=== PATIENT | male | born 1940 | race Caucasian/White ===

== ENCOUNTER → 2017-11-01 | Outpatient (CLI) | payer MEDICARE, OTHER | END | disposition home or self-care (01) | LOC: PCVCCLINIC 08:00 | DX: I44.4 Left anterior fascicular block (principal); I10 Essential (primary) hypertension; E78.5 Hyperlipidemia, unspecified; D33.4 Benign neoplasm of spinal cord; Z79.82 Long term (current) use of aspirin; Z88.8 Allergy status to other drugs, medicaments and biological substances | CPT/HCPCS: 80061; 93005; G0463 ==

== ENCOUNTER → 2018-05-04 | Outpatient (CLI) | payer MEDICARE, OTHER ==
--- NOTE | 2018-05-04 10:36 | PCVCIMAG ---
APPROVED REPORT Study performed: 05/04/2018 09:09:32 EXAM: Comprehensive 2D, Doppler, and color-flow Echocardiogram Patient Location: Echo lab Status: routine BSA: 2.17 HR: 49 bpmBP: 110/78 mmHg Rhythm: Bradycardia Other Information Study Quality: Adequate Risk Factors: Cardiac Risk Factors: HTN Indications Abnormal ECG 2D Dimensions IVSd: 10.44 (7-11mm) LVDd: 50.17 mm PWd: 9.20 (7-11mm)Ascending Ao: 36.62 (22-36mm) LVDs: 36.10 (25-40mm) Left Atrium: 44.49 (27-40mm) Aortic Root: 37.42 mm LV Single Plane 4CH: 51.12 % LV Single Plane 2CH: 58.11 % Biplane EF: 55.3 % Volumes Left Atrial Volume (Systole) Single Plane 4CH: 68.61 mLSingle Plane 2CH: 91.23 mL LA ESV Index: 40.00 mL/m2 Aortic Valve AoV Peak Jd.: 1.41 m/s AO Peak Gr.: 7.95 mmHgLVOT Max P.19 mmHg LVOT Max V: 0.89 m/s Mitral Valve E/A Ratio: 0.5 MV Decel. Time: 407.31 ms MV E Max Jd.: 0.35 m/s MV A Jd.: 0.65 m/s MV PHT: 118.12 ms IVRT: 186.85 ms Pulmonary Valve PV Peak Jd.: 0.62 m/sPV Peak Gr.: 1.56 mmHg Pulmonary Vein P Vein S: 0.31 m/sP Vein A: 0.27 m/s P Vein D: 0.39 m/sP Vein A Dur.: 134.9 msec P Vein S/D Ratio: 0.79 Tricuspid Valve TR Peak Jd.: 2.37 m/s TR Peak Gr.: 22.47 mmHg Left Ventricle The left ventricle is normal size. There is normal LV segmental wall motion. There is normal left ventricular wall thickness. Left ventricular systolic function is normal. The left ventricular ejection fraction is within the normal range. LVEF is 50%. Grade I - abnormal relaxation pattern. Right Ventricle The right ventricle is normal size. The right ventricular systolic function is normal. Atria Left atrium is mildly dilated. Right atrium is mildly dilated. Aortic Valve The aortic valve is normal in structure. No aortic regurgitation is present. There is no aortic valvular stenosis. Mitral Valve The mitral valve is normal in structure. Mild mitral regurgitation. No evidence of mitral valve stenosis. Tricuspid Valve The tricuspid valve is normal in structure. Trace tricuspid regurgitation with PAP of 30 mmHg. Pulmonic Valve The pulmonary valve is normal in structure. There is no pulmonic valvular regurgitation. Great Vessels The aortic root is normal in size. IVC is normal in size and collapses >50% with inspiration. Pericardium There is no pericardial effusion. There is no pleural effusion. <Conclusion> Left ventricular systolic function is normal. There is normal LV segmental wall motion. LVEF is 50%. Mild diastolic dysfunction Both atria are mildly dilated. The aortic valve is normal in structure. No aortic regurgitation or stenosis The mitral valve is normal in structure. Mild mitral regurgitation. Trace tricuspid regurgitation with pulmonary artery pressure of 30 mmHg. There is no pericardial effusion.
== END | disposition home or self-care (01) ==
LOC: PCVCIMAG 09:08
PROVIDERS: ATTEND Internal Medicine
DX: I34.0 Nonrheumatic mitral (valve) insufficiency (principal); R94.31 Abnormal electrocardiogram [ECG] [EKG]; I10 Essential (primary) hypertension; I44.4 Left anterior fascicular block; E78.5 Hyperlipidemia, unspecified; D33.4 Benign neoplasm of spinal cord; Z72.89 Other problems related to lifestyle; Z79.82 Long term (current) use of aspirin; Z88.8 Allergy status to other drugs, medicaments and biological substances
CPT/HCPCS: 80061; 93005; 93306; G0463